=== PATIENT | male | born 2000 | race Two or more races ===

== ENCOUNTER 2024-07-30 18:44 | Emergency (ER) | payer OTHER ==
[~2024-07-30] VITALS: Ht 165.1 cm; Wt 44.5 kg
[2024-07-30] MEDS ORDERED: KETOROLAC TROMETHAMINE 30 MG VIAL IM ONE (23:15)
[2024-07-30] MEDS ORDERED: ORPHENADRINE CITRATE 30 MG/ML AMPUL IM ONE (23:15)
[2024-07-30] MEDS ORDERED: DEXAMETHASONE SODIUM PHOSPHATE 4 MG/ML VIAL IM ONE (23:15)
== END 2024-07-31 00:41 | disposition home or self-care (01) ==
LOC: ER 18:46
DX: M54.9 Dorsalgia, unspecified (principal); V43.62XA Car passenger injured in collision with other type car in traffic accident, initial encounter; W22.11XA Striking against or struck by driver side automobile airbag, initial encounter; Y93.89 Activity, other specified; Y92.413 State road as the place of occurrence of the external cause